=== PATIENT | male | born 1960 | race African-American/Black ===

== ENCOUNTER → 2020-01-22 | Outpatient (CLI) | payer OTHER ==
[2020-01-22 11:29] LABS: ABSOLUTE EOSINOPHILS # (AUTO) 0.2 10^3/uL (0.0-0.6); ABSOLUTE LYMPHOCYTES (AUTO) 1.3 10^3/uL (0.5-4.7); ABSOLUTE MONOCYTES (AUTO) 0.3 10^3/uL (0.1-1.4); ABSOLUTE NEUT (AUTO) 2.2 10^3/uL (1.7-8.2); BASOPHILS % (AUTO) 0.6 % (0-2); EOSINOPHILS % (AUTO) 3.9 % (0-6); HEMATOCRIT 40.6 % (37.9-51.0); HEMOGLOBIN 13.7 g/dL (13.5-17.0); LYMPHOCYTES % (AUTO) 32.8 % (13-45); MEAN CORPUSCULAR HGB CONC 33.7 g/dL (32.0-36.0); MEAN CORPUSCULAR VOLUME 86 fl (80-97); MONOCYTES % (AUTO) 7.4 % (3-13); PLATELET COUNT 212 10^3/uL (150-450); RED BLOOD COUNT 4.71 10^6/uL (4.35-5.55); RED CELL DISTRIBUTION WIDTH 15.1 % (11.5-14.0); SEGMENTED NEUTROPHILS % (AUTO) 55.3 % (42-78); TOTAL CELLS COUNTED % (AUTO) 100 %
[2020-01-22 11:53] LABS: ANION GAP 5 (5-19); BLOOD UREA NITROGEN 18 mg/dL (7-20); CALCIUM 9.3 mg/dL (8.4-10.2); CARBON DIOXIDE 32 mmol/L (22-30); CHLORIDE 103 mmol/L (98-107); GLUCOSE 76 mg/dL (75-110); POTASSIUM 4.2 mmol/L (3.6-5.0)
[2020-01-22 11:55] LABS: APPEARANCE,URINE CLEAR; BILIRUBIN,URINE NEGATIVE (NEGATIVE); COLOR,URINE YELLOW; GLUCOSE, URINE NEGATIVE (NEGATIVE); KETONES,URINE NEGATIVE (NEGATIVE); LEUKOCYTE ESTERASE,URINE NEGATIVE (NEGATIVE); NITRITE,URINE NEGATIVE (NEGATIVE); PROTEIN,URINE NEGATIVE (NEGATIVE); URINE SPECIFIC GRAVITY 1.025
--- NOTE | 2020-01-22 12:23 | RADIOLOGY REPORT (SQ) ---
EXAM DESCRIPTION: CHEST PA/LATERAL IMAGES COMPLETED DATE/TIME: 01/22/2020 11:26 am REASON FOR STUDY: PRE OP COMPARISON: None. EXAM PARAMETERS: NUMBER OF VIEWS: two views TECHNIQUE: Digital Frontal and Lateral radiographic views of the chest acquired. RADIATION DOSE: NA LIMITATIONS: none FINDINGS: LUNGS AND PLEURA: No opacities, masses or pneumothorax. No pleural effusion. MEDIASTINUM AND HILAR STRUCTURES: No masses or contour abnormalities. HEART AND VASCULAR STRUCTURES: Heart normal size. No evidence for failure. BONES: No acute findings. HARDWARE: None in the chest. OTHER: No other significant finding. IMPRESSION: NO SIGNIFICANT RADIOGRAPHIC FINDING IN THE CHEST. TECHNICAL DOCUMENTATION: JOB ID: [id number] 2010 [employer]- All Rights Reserved Reading location - IP/workstation name: [email or web address]
--- NOTE | 2020-01-22 18:01 | EKG REPORT ---
SEVERITY:- OTHERWISE NORMAL ECG - SINUS RHYTHM VENTRICULAR PREMATURE COMPLEX : Confirmed by: Kacy Matos MD 22-Jan-2020 18:00:35
== END ==
LOC: OD 11:01
PROVIDERS: ATTEND Orthopaedic Surgery
DX: Z01.812 Encounter for preprocedural laboratory examination (principal); Z01.810 Encounter for preprocedural cardiovascular examination; Z01.811 Encounter for preprocedural respiratory examination; M17.11 Unilateral primary osteoarthritis, right knee
CPT/HCPCS: 36415; 71046; 80048; 81001; 85025; 93005; 93010

== ENCOUNTER 2020-02-16 05:21 | Inpatient (IN) | payer OTHER ==
[~2020-02-16 05:21] MED LIST: BUPIVACAINE INJ/PF LIPOSOME/PF 266 MG/20 ML SDV INJ PRN; CEFAZOLIN INJ 1 GM VIAL IV PRN; IBUPROFEN 800 MG in NORMAL SALINE 250 ML IV PRN; LACTATED RINGERS 1000 ML IV PRN; LIDOCAINE 0.5% INJ-PF (5 MG/ML) 50 ML SDV SUBCUT PRN; OXYCODONE HCL SR 10 MG TABLET PO PRN; PANTOPRAZOLE SODIUM 20 MG TABLET.DR PO PRN; VANCOMYCIN HCL 1,000 MG in DEXTROSE 5%-WATER 250 ML IV PRN
[2020-02-16] MEDS ORDERED: CEFAZOLIN 1 GM/D5W RTU 1 GM/50 ML RTUPB IV ONE (06:06)
[2020-02-16] MEDS ORDERED: PANTOPRAZOLE SODIUM 20 MG TABLET.DR PO ONE (06:06)
[2020-02-16] MEDS ORDERED: OXYCODONE HCL SR 10 MG TABLET PO ONE (06:06)
[2020-02-16] MEDS ORDERED: BUPIVACAINE HCL 0.25% /EPINEPHRINE INJ/PF 30 ML SDV ONE (07:09)
[2020-02-16] MEDS ORDERED: PROPOFOL INJ 200 MG/20 ML VIAL IV ONE (07:13)
[2020-02-16] MEDS ORDERED: MIDAZOLAM 2 MG/2 ML INJ ONE (07:13)
[2020-02-16] MEDS ORDERED: LIDOCAINE 2% INJ-PF (20 MG/ML) 10 ML AMPUL ONE (07:13)
[2020-02-16] MEDS ORDERED: FENTANYL CITRATE INJ/PF 100 MCG/2 ML AMPUL ONE (07:13)
[2020-02-16] MEDS ORDERED: TRANEXAMIC ACID INJ/PF 1,000 MG/10 ML SDV ONE (07:29)
[2020-02-16] MEDS ORDERED: ROPIVACAINE HCL 0.5% INJ/PF (5 MG/1 ML) 30 ML SDV ONE (07:46)
[2020-02-16] MEDS ORDERED: DIPHENHYDRAMINE HCL 50 MG/ML VIAL IV PRN ×2 (08:02→08:44)
[2020-02-16] MEDS ORDERED: MEPERIDINE HCL/PF INJ 25 MG/1 ML DISP.SYRIN IV PRN (08:02)
[2020-02-16] MEDS ORDERED: FENTANYL CITRATE INJ/PF 100 MCG/2 ML AMPUL IV PRN ×3 (08:02)
[2020-02-16] MEDS ORDERED: ONDANSETRON HCL INJ/PF 4 MG/2 ML SDV IV PRN ×2 (08:02→08:44)
[2020-02-16] MEDS ORDERED: PROMETHAZINE HCL INJ 25 MG/1 ML VIAL IV PRN ×2 (08:02)
[2020-02-16] MEDS ORDERED: EPHEDRINE SULFATE INJ 50 MG/1 ML AMPULE ONE (08:11)
--- NOTE | 2020-02-16 08:43 | Operative Report ---
Operative Report DATE OF SURGERY: 02/16/20 PREOPERATIVE DIAGNOSIS: Right knee arthritis OPERATION: Right knee arthroplasty SURGEON: AMY STEVEN ANESTHESIA: Spinal TISSUE REMOVED OR ALTERED: Bone to pathology ESTIMATED BLOOD LOSS: 75 PROCEDURE: Implants used: Femur: Boykins triathlon size 8 CR uncemented femur Tibia: 7 uncemented tibia Tibial liner: 9 mm CS insert Patella: 40 mm uncemented patella Procedure with the patient supine on the operating table the right the limb is prepped and draped in a sterile fashion. The limb was elevated for exsanguination and the tourniquet inflated to 280 torr. A standard midline median parapatellar approach the knee is taken. Access is gained to the femoral canal through the intercondylar notch. Intramedullary alignment instrumentation used to resect 10 mm of distal femur in 5 of valgus. Sizing guide indicated a size 8 femur. Appropriate cutting jig is then used to fashion anterior posterior and chamfer cuts. A trial reduction femurs performed and this is judged to be adequate. Attention was next turned to the tibia. Using an extra medullary alignment system 9 millimeters was resected off the lateral tibial plateau. This is sized to a size 7 tibia. A trial reduction was now performed with a 8 femur and a 7 tibia using a 9 millimeters spacer. It is full extension and central patellofemoral tracking. The articular surface the patella was next resected using an oscillating saw. All trial implants were removed. The above implants are impacted into position and irrigated with pulse lavage using normal saline with Betadine. The tourniquet was deflated hemostasis obtained the wound is then closed in layers using interrupted Vicryl followed by teresa. A sterile compressive dressing was applied and the patient returned to recovery room in satisfactory condition.
[2020-02-16] MEDS ORDERED: TRANEXAMIC ACID INJ/PF 1,000 MG/10 ML SDV IV ONE (08:44)
[2020-02-16] MEDS ORDERED: ONDANSETRON 4 MG TAB.RAPDIS PO PRN (08:44)
[2020-02-16] MEDS ORDERED: ACETAMINOPHEN 325 MG TABLET PO PRN (08:44)
[2020-02-16] MEDS ORDERED: RINGERS SOLUTION,LACTATED 1,000 ML IV PRN (08:44)
[2020-02-16] MEDS ORDERED: ZOLPIDEM TARTRATE 5 MG TABLET PO PRN (08:44)
[2020-02-16] MEDS ORDERED: MAG HYDROX/AL HYDROX/SIMETH SUSP 30 ML UDCUP PO PRN (08:44)
[2020-02-16] MEDS ORDERED: LIDOCAINE 1% INJ-PF (10 MG/ML) 30 ML SDV ONE (09:00)
[2020-02-16] MEDS ORDERED: SENNOSIDES/DOCUSATE 8.6-50 MG 1 EACH TABLET PO SCH (10:00)
[2020-02-16] MEDS ORDERED: PRENATAL VITAMIN W DHA CAPSULE PO SCH (10:00)
[2020-02-16] MEDS ORDERED: TAMSULOSIN HCL 0.4 MG CAP.SR.24H PO SCH (10:00)
[2020-02-16] MEDS ORDERED: (PENDING PHARMACY ID) (Telmisartan/Hydrochlorothiazid [Telmisartan-Hctz 80-12.5 Mg Tb] 1 E PO SCH (10:00)
[2020-02-16] MEDS ORDERED: OXYCODONE HCL SR 10 MG TABLET PO SCH (10:00)
--- NOTE | 2020-02-16 10:31 | RADIOLOGY REPORT (SQ) ---
EXAM DESCRIPTION: KNEE RIGHT 2 VIEWS IMAGES COMPLETED DATE/TIME: 02/16/2020 10:12 am REASON FOR STUDY: Post OP -Long Cassette in PACU M17.11 UNILATERAL PRIMARY OSTEOARTHRITIS, RIGHT KN EE COMPARISON: None. NUMBER OF VIEWS: Two view(s). TECHNIQUE: Digital radiographic images of the right knee post-procedure. LIMITATIONS: None. FINDINGS: BONES: No worrisome or unexpected findings post-procedure. DEVICE: Total knee arthroplasty SOFT TISSUES: No worrisome findings. Expected postoperative soft tissue changes. IMPRESSION: SATISFACTORY POSTOPERATIVE RIGHT KNEE. TECHNICAL DOCUMENTATION: JOB ID: [id number] 2010 [employer]- All Rights Reserved Reading location - IP/workstation name: [email or web address]
[2020-02-16] MEDS ORDERED: PHENYLEPHRINE HCL INJ/PF 10 MG/1 ML SDV ONE (14:29)
[2020-02-16] MEDS ORDERED: ONDANSETRON HCL INJ/PF 4 MG/2 ML SDV ONE (14:29)
[2020-02-16] MEDS ORDERED: METOCLOPRAMIDE HCL INJ/PF 10 MG/2 ML SDV ONE (14:29)
[2020-02-16] MEDS: IBUPROFEN 800 MG in NORMAL SALINE 250 ML IV SCH ×2 (15:01→22:53)
[2020-02-16] MEDS: OXYCODONE HCL IR 5 MG TABLET PO PRN ×2 (15:01→21:09)
[2020-02-16] MEDS: OXYCODONE HCL SR 10 MG TABLET PO SCH (17:40)
[2020-02-16] MEDS: LOSARTAN POTASSIUM 50 MG TABLET PO SCH (17:41)
[2020-02-16] MEDS: HYDROCHLOROTHIAZIDE 12.5 MG TABLET PO SCH (17:41)
[2020-02-16] MEDS: SENNOSIDES/DOCUSATE 8.6-50 MG 1 EACH TABLET PO SCH (18:00)
[2020-02-16] MEDS ORDERED: VANCOMYCIN HCL 1,000 MG in DEXTROSE 5%-WATER 250 ML IV ONE (20:44)
[2020-02-16] MEDS ORDERED: ATORVASTATIN CALCIUM 40 MG TABLET PO SCH (22:00)
[2020-02-17] MEDS: HYDROCHLOROTHIAZIDE 12.5 MG TABLET PO SCH (05:40)
[2020-02-17] MEDS: IBUPROFEN 800 MG in NORMAL SALINE 250 ML IV SCH (05:40)
[2020-02-17] MEDS: OXYCODONE HCL SR 10 MG TABLET PO SCH (05:41)
[2020-02-17] MEDS: LOSARTAN POTASSIUM 50 MG TABLET PO SCH (05:41)
[2020-02-17 06:00] LABS: HEMATOCRIT 33.1 % (37.9-51.0); HEMOGLOBIN 11.1 g/dL (13.5-17.0); MEAN CORPUSCULAR HEMOGLOBIN 29.1 pg (27.0-33.4); MEAN CORPUSCULAR HGB CONC 33.7 g/dL (32.0-36.0); MEAN CORPUSCULAR VOLUME 86 fl (80-97); PLATELET COUNT 176 10^3/uL (150-450); RED BLOOD COUNT 3.83 10^6/uL (4.35-5.55); RED CELL DISTRIBUTION WIDTH 15.4 % (11.5-14.0); WHITE BLOOD COUNT 5.2 10^3/uL (4.0-10.5)
[2020-02-17] MEDS ORDERED: PANTOPRAZOLE SODIUM 40 MG TABLET.DR PO SCH (06:00)
[2020-02-17 06:24] LABS: ANION GAP 5 (5-19); BLOOD UREA NITROGEN 16 mg/dL (7-20); CALCIUM 8.3 mg/dL (8.4-10.2); CARBON DIOXIDE 29 mmol/L (22-30); CHLORIDE 101 mmol/L (98-107); GLUCOSE 104 mg/dL (75-110); POTASSIUM 3.6 mmol/L (3.6-5.0)
--- NOTE | 2020-02-17 07:17 | PDOC DISCHARGE SUMMARY ---
Impression - Admit/DC Date/PCP Admission Date/Primary Care Provider: 02/16/20 05:21 DANETTE DANIEL Discharge Date: 02/17/20 - Discharge Diagnosis (1) Arthritis of right knee Is this a current diagnosis for this admission?: Yes - Additional Information Resuscitation Status: Full Code Discharge Diet: Regular Discharge Activity: Balance Activity w/Rest, No tub bath Referrals: AMY STEVEN MD [ACTIVE STAFF] - 03/02/20 8:15 am Home Medications: Acetaminophen [Tylenol] 975 mg PO Q8HP PRN MDD 2925 MG 02/12/20 Psyllium Husk [Metamucil] 660 gm PO DAILYP PRN 02/12/20 Tamsulosin HCl [Flomax 0.4 mg Cap.sr] 0.4 mg PO DAILY 02/12/20 Telmisartan/Hydrochlorothiazid [Telmisartan-Hctz 80-12.5 mg Tb] 1 each PO BID 02/12/20 History of Present Illiness History of Present Illness: MARIALUISA BUI is a 59 year old male 59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 Patient is admitted for elective right knee arthroplasty. Hospital Course Hospital Course: Patient is admitted through the operating where he undergoes uncomplicated right knee arthroplasty. Is returned to floor in satisfactory vision. Seen by physical therapy and they surgery ambulates 300 feet with some discomfort. Physical Exam Vital Signs: Temp Pulse Resp BP Pulse Ox 36.8 C 85 20 138/64 H 97 02/17/20 00:25 02/17/20 00:25 02/17/20 00:25 02/17/20 00:25 02/17/20 00:25 Intake & Output 02/16/20 02/17/20 02/18/20 06:59 06:59 06:59 Intake Total 250 3730 Output Total 850 Balance 250 2880 Weight 117 kg 117 kg General appearance: PRESENT: no acute distress, mild distress Head exam: PRESENT: normocephalic Respiratory exam: PRESENT: unlabored Cardiovascular exam: PRESENT: RRR Pulses: PRESENT: +1 pedal pulses bilateral Vascular exam: PRESENT: normal capillary refill GI/Abdominal exam: PRESENT: soft Rectal exam: PRESENT: deferred Musculoskeletal exam: PRESENT: other - Compressive dressing is removed on the first postoperative morning. Underlying OpSite dressing is clean dry and intact. Minimal pedal edema. Distal neurovascular examination is intact. Results Laboratory Results: WBC 5.2 10^3/uL (4.0-10.5) 02/17/20 05:07 RBC 3.83 10^6/uL (4.35-5.55) L 02/17/20 05:07 Hgb 11.1 g/dL (13.5-17.0) L 02/17/20 05:07 Hct 33.1 % (37.9-51.0) L 02/17/20 05:07 MCV 86 fl (80-97) 02/17/20 05:07 MCH 29.1 pg (27.0-33.4) 02/17/20 05:07 MCHC 33.7 g/dL (32.0-36.0) 02/17/20 05:07 RDW 15.4 % (11.5-14.0) H 02/17/20 05:07 Plt Count 176 10^3/uL (150-450) 02/17/20 05:07 Sodium 135.4 mmol/L (137-145) L 02/17/20 05:07 Potassium 3.6 mmol/L (3.6-5.0) 02/17/20 05:07 Chloride 101 mmol/L (98-107) 02/17/20 05:07 Carbon Dioxide 29 mmol/L (22-30) 02/17/20 05:07 Anion Gap 5 (5-19) 02/17/20 05:07 BUN 16 mg/dL (7-20) 02/17/20 05:07 Creatinine 0.92 mg/dL (0.52-1.25) 02/17/20 05:07 Est GFR ( Amer) > 60 (>60) 02/17/20 05:07 Est GFR (MDRD) Non-Af > 60 (>60) 02/17/20 05:07 Glucose 104 mg/dL (75-110) 02/17/20 05:07 Calcium 8.3 mg/dL (8.4-10.2) L 02/17/20 05:07 COVID-19 Source NASOPHARYNGEAL 02/12/20 10:45 COVID-19 (ROSA) NOT DETECTED 02/12/20 10:45 Impressions: Knee X-Ray 02/16/20 08:46 IMPRESSION: SATISFACTORY POSTOPERATIVE RIGHT KNEE. Plan Plan of Treatment: Patient to be discharged home in a weightbearing as tolerated basis with home health services and DME. Follow-up Dr. Art Whiting Thoreau for surgery in 2 weeks for staple removal. Stroke Is this a Stroke Patient?: No Stroke Pt being discharged on Anti-thrombolytic therapy?: Yes Acute Heart Failure - Is this a Heart Failure Patient?: No
[2020-02-17 09:11] VITALS: BP 152/106
[2020-02-17] MEDS: SENNOSIDES/DOCUSATE 8.6-50 MG 1 EACH TABLET PO SCH (09:30)
[2020-02-17] MEDS ORDERED: PRENATAL VITAMIN W DHA CAPSULE PO SCH (10:00)
[2020-02-17] MEDS ORDERED: TAMSULOSIN HCL 0.4 MG CAP.SR.24H PO SCH (10:00)
== END 2020-02-17 11:48 | disposition home health service (06) | DRG 470 ==
LOC: INOR 05:21 → 4S 10:35
PROVIDERS: ADMIT Orthopaedic Surgery; ATTEND Orthopaedic Surgery
PROC: 0SRC0J9 Replacement of Right Knee Joint with Synthetic Substitute, Cemented, Open Approach (ICD-10-PCS; principal; 2020-02-16 07:30)
DX: M17.11 Unilateral primary osteoarthritis, right knee (principal); Z11.59 Encounter for screening for other viral diseases; Z79.899 Other long term (current) drug therapy
CPT/HCPCS: 01402; 36415; 64447; 76942; 80048; 84132; 85027; 87635; 88305; 88311; 94799; C1776; C9803; J0690; J1741; J2250; J2370; J2405; J2704; J2765; J2795; J3010; J3370; J3490; J7050; J7060

== ENCOUNTER → 2020-04-01 | Outpatient (CLI) | payer OTHER ==
[2020-04-01 14:02] LABS: ABSOLUTE EOSINOPHILS # (AUTO) 0.1 10^3/uL (0.0-0.6); ABSOLUTE LYMPHOCYTES (AUTO) 1.2 10^3/uL (0.5-4.7); ABSOLUTE MONOCYTES (AUTO) 0.3 10^3/uL (0.1-1.4); ABSOLUTE NEUT (AUTO) 2.4 10^3/uL (1.7-8.2); BASOPHILS % (AUTO) 0.5 % (0-2); EOSINOPHILS % (AUTO) 1.9 % (0-6); HEMATOCRIT 37.8 % (37.9-51.0); HEMOGLOBIN 12.7 g/dL (13.5-17.0); MEAN CORPUSCULAR HEMOGLOBIN 29.1 pg (27.0-33.4); MEAN CORPUSCULAR HGB CONC 33.7 g/dL (32.0-36.0); MEAN CORPUSCULAR VOLUME 87 fl (80-97); MONOCYTES % (AUTO) 7.7 % (3-13); PLATELET COUNT 246 10^3/uL (150-450); RED BLOOD COUNT 4.37 10^6/uL (4.35-5.55); RED CELL DISTRIBUTION WIDTH 15.3 % (11.5-14.0); SEGMENTED NEUTROPHILS % (AUTO) 59.9 % (42-78); TOTAL CELLS COUNTED % (AUTO) 100 %
[2020-04-01 14:25] LABS: ALBUMIN 4.6 g/dL (3.5-5.0); ALKALINE PHOSPHATASE 114 U/L (38-126); ANION GAP 10 (5-19); ASPARTATE AMINO TRANSFERASE 38 U/L (17-59); BILIRUBIN,DIRECT 0.2 mg/dL (0.0-0.4); BILIRUBIN,TOTAL 0.7 mg/dL (0.2-1.3); BLOOD UREA NITROGEN 14 mg/dL (7-20); CALCIUM 9.6 mg/dL (8.4-10.2); CARBON DIOXIDE 31 mmol/L (22-30); CHLORIDE 102 mmol/L (98-107); GLUCOSE 99 mg/dL (75-110); POTASSIUM 3.8 mmol/L (3.6-5.0); TOTAL PROTEIN 7.9 g/dL (6.3-8.2)
[2020-04-01 14:41] LABS: ERYTHROCYTE SEDIMENTATION RATE 26 mm/hr (0-20)
== END ==
LOC: OD 13:20
PROVIDERS: ATTEND Physician Assistant
DX: M25.561 Pain in right knee (principal)
CPT/HCPCS: 36415; 80053; 85025; 85652; 86141